=== PATIENT | female | born 1960 | race Caucasian/White ===

== ENCOUNTER → 2021-04-29 09:29 | Outpatient (CLI) | payer OTHER, SELFPAY ==
--- NOTE | 2021-04-29 | ASPOS_PTH ---
PATIENT: HARINDER MEADOWS LOC: [facility] U#:[id number] AGE/SX: 64/F ROOM: RE04/29/[address]: Dr. Shakeel Jiang MD : 1960 BED: DIS: SPEC #: [id number] RECD: 04/29/21 13:08 STATUS: KUSH JULIETTE #: [id number] WILLIE: 04/29/21 00:[address]: Shakeel Jiang DEPT: CYTOLOGY RECD BY: Emely Escalona ENTERED: 04/29/21 13:08 SP TYPE: ASP HERE OTHR DR: Dr. Sarah Tate, DO Tissues: Neck, NOS Procedures: Surgery Specimen Level IV Cytology Other Fine Needle Asp on Site HEADER OPERATION: Fine needle aspiration left neck mass PRE-OP DIAGNOSIS: Left neck mass TISSUE SUBMITTED: Left neck mass DIAGNOSIS CYTOLOGY Fine needle aspiration, left neck mass (smears and cell block): Mature adipose tissue consistent with lipoma. AM:ya 04/30/2021 COMMENT The specimen is evaluated at the time of FNA by Dr. Thornton. Immediate Evaluation = Mature adipose tissue consistent with lipoma. CYTOLOGY STUDY Slides are reviewed. CYTOLOGY GROSS Received is 0.2 ml of reddish-nuñez material labeled with the patient's name, and designated left neck mass. Five imprints and three paps are made from the submitted fluid and the rest is added to [employer]to[employer] for cell block preparation. Submitted for cytology study. / AM:ya 04/29/2021 TC:5 CPT: 42702, 71057, 98833, 07772
== END ==
PROVIDERS: Visit Provider Otolaryngology Otolaryngology/Facial Plastic Surgery
DX: R22.1 Localized swelling, mass and lump, neck (principal)
CPT/HCPCS: 10021; 88161; 88305